=== PATIENT | male | born 1950 | race Caucasian/White ===

== ENCOUNTER 2018-01-21 08:43 | Day surgery (SDC) | payer OTHER ==
[~2018-01-21] VITALS: Ht 193 cm; Wt 105.3 kg
[~2018-01-21 08:43] MED LIST: CLON.1 PO; CYCL10 PO; GABA100; GLIM2 PO; HYDCHL12.5 PO; HYDMOR4 PO; LORA.5 PO; LOSA50 PO; METO25ER PO; METO50ER PO; NAPR550 PO; OLME20 PO; OXYACE7.5T PO; OXYC5 PO; PROC25S PR; PROM25 PO; PROM25S PR; TACR1 PO
== END 2018-01-21 10:24 | disposition home or self-care (01) ==
LOC: ORSCSDS 08:43
PROVIDERS: Internal Medicine Gastroenterology
PROC: 0DJD8ZZ Inspection of Lower Intestinal Tract, Via Natural or Artificial Opening Endoscopic (ICD-10-PCS; principal; 2018-01-21 10:00)
DX: Z86.010 Personal history of colon polyps (principal); K64.8 Other hemorrhoids; K57.30 Diverticulosis of large intestine without perforation or abscess without bleeding; I12.9 Hypertensive chronic kidney disease with stage 1 through stage 4 chronic kidney disease, or unspecified chronic kidney disease; N18.2 Chronic kidney disease, stage 2 (mild); E11.22 Type 2 diabetes mellitus with diabetic chronic kidney disease; F41.9 Anxiety disorder, unspecified; Z94.4 Liver transplant status; Z87.891 Personal history of nicotine dependence; Z79.899 Other long term (current) drug therapy
CPT/HCPCS: 82947; J7120

== ENCOUNTER → 2018-08-12 | Outpatient (CLI) | payer MEDICARE ==
[2018-08-13 10:15] LABS: U Amphetamine Screen Not Detected; U Barbituate Screen Not Detected; U Benzodiazapine Screen DETECTED; U Buprenorphine Screen Not Detected; U Cannabinoids Screen DETECTED; U Cocaine Screen Not Detected; U Methadone Screen Not Detected; U Methamphetamine Screen Not Detected; U Opiates Screen Not Detected; U Oxycodone Screen DETECTED; U Phencyclidine Screen Not Detected; U Propoxyphene Screen Not Detected
== END | disposition home or self-care (01) ==
LOC: LAB SHORT 09:01 → LAB 09:01
PROVIDERS: Internal Medicine Hematology & Oncology
DX: F11.20 Opioid dependence, uncomplicated (principal); Z79.891 Long term (current) use of opiate analgesic
CPT/HCPCS: G0480

== ENCOUNTER 2021-05-12 19:16 | Emergency (ER) | payer MEDICARE ==
[~2021-05-12] VITALS: Ht 190.5 cm; Wt 92.5 kg
[2021-05-12 19:52] LABS: BASOPHILS ABSOLUTE AUTO 0.04 K/mm3 (0.00-0.23); BASOPHILS PERCENT AUTO 1 % (0-2); EOSINOPHILS ABSOLUTE AUTO 0.14 K/mm3 (0.00-0.68); EOSINOPHILS PERCENT AUTO 2 % (0-6); Hematocrit 46.4 % (37.0-53.0); Hemoglobin 16.2 g/dL (13.5-17.5); IMMATURE GRAN ABSOLUTE AUTO 0.03 K/mm3 (0.00-0.10); IMMATURE GRAN PERCENT AUTO 1 % (0-1); LYMPHOCYTES ABSOLUTE AUTO 1.04 K/mm3 (0.84-5.20); LYMPHOCYTES PERCENT AUTO 16 % (21-46); MONOCYTES ABSOLUTE AUTO 0.71 K/mm3 (0.16-1.47); MONOCYTES PERCENT AUTO 11 % (4-13); Mean Corpuscular HGB 31.2 pg (26.0-34.0); Mean Corpuscular HGB Conc 34.9 g/dL (31.5-36.5); Mean Corpuscular Volume 89 fL (80-100); Mean Platelet Volume 11.1 fL (9.1-12.4); NEUTROPHILS ABSOLUTE AUTO 4.41 K/mm3 (1.96-9.15); NEUTROPHILS PERCENT AUTO 69 % (41-73); Platelet Count 109 K/mm3 (150-400); RDW Coefficient Variation 13.1 % (11.7-14.2); RDW Standard Deviation 42.6 fL (35.1-46.3); White Blood Cell Count 6.37 K/mm3 (4.00-11.30)
[2021-05-12 20:07] LABS: Troponin I <0.015 ng/mL (0.000-0.040)
[2021-05-12 20:18] LABS: Alanine Aminotransfer (ALT/SGP 113 U/L (12-78); Albumin, Blood 3.3 g/dL (3.4-5.0); Alk Phos 165 U/L (50-136); Anion Gap 6 mmol/L (6-16); Aspartate Aminotrans (AST/SGOT 143 U/L (12-37); Bilirubin, Total 1.6 mg/dL (0.1-1.0); Blood Urea Nitrogen 28 mg/dL (8-24); Bun/Creatinine Ratio 22.2 (12.0-20.0); CO2, Blood 23 mmol/L (21-32); Calcium, Blood 9.3 mg/dL (8.5-10.1); Chloride, Blood 108 mmol/L (98-108); Creatinine, Blood 1.26 mg/dL (0.60-1.20); Globulin, Blood 3.2 g/dL (2.2-4.0); Glomerular Filtration Rate 56 (60-); Glucose, Blood 152 mg/dL (70-99); Potassium, Blood 3.9 mmol/L (3.5-5.5); Sodium, Blood 137 mmol/L (136-145); Total Protein, Blood 6.5 g/dL (6.4-8.2)
[2021-05-12 21:45] LABS: SARS-Cov-2 (COVID-19) PCR, MMC NEGATIVE (NEGATIVE)
== END 2021-05-12 22:15 | disposition home or self-care (01) ==
LOC: ER 19:16
PROVIDERS: Emergency Medicine
DX: R55 Syncope and collapse (principal); R79.89 Other specified abnormal findings of blood chemistry; Z20.822 Contact with and (suspected) exposure to COVID-19; Z87.891 Personal history of nicotine dependence; Z79.899 Other long term (current) drug therapy
CPT/HCPCS: 70450; 80053; 84484; 85025; 93005; 93010; 99285-25; J7120; U0004

== ENCOUNTER → 2022-02-09 | Outpatient (CLI) | payer MEDICARE, OTHER ==
[2022-02-09 15:41] LABS: U Amphetamine Screen Not Detected; U Barbituate Screen Not Detected; U Benzodiazapine Screen DETECTED; U Buprenorphine Screen Not Detected; U Cannabinoids Screen DETECTED; U Cocaine Screen Not Detected; U Methadone Screen Not Detected; U Methamphetamine Screen Not Detected; U Opiates Screen Not Detected; U Oxycodone Screen Not Detected; U Phencyclidine Screen Not Detected; U Propoxyphene Screen Not Detected
[2022-02-14 14:10] LABS: CARBOXY-THC 70 (.)
== END | disposition home or self-care (01) ==
LOC: LAB SHORT 13:49 → LAB 13:49
PROVIDERS: Internal Medicine Hematology & Oncology
DX: Z51.81 Encounter for therapeutic drug level monitoring (principal); Z79.899 Other long term (current) drug therapy
CPT/HCPCS: G0480

== ENCOUNTER 2022-04-12 18:26 | Inpatient (IN) | payer MEDICARE, OTHER ==
[~2022-04-12] VITALS: Ht 193 cm; Wt 81.6 kg
[2022-04-12 19:32] LABS: BASOPHILS ABSOLUTE AUTO 0.04 K/mm3 (0.00-0.23); BASOPHILS PERCENT AUTO 1 % (0-2); EOSINOPHILS ABSOLUTE AUTO 0.08 K/mm3 (0.00-0.68); EOSINOPHILS PERCENT AUTO 1 % (0-6); Hematocrit 50.6 % (37.0-53.0); IMMATURE GRAN ABSOLUTE AUTO 0.01 K/mm3 (0.00-0.10); IMMATURE GRAN PERCENT AUTO 0 % (0-1); LYMPHOCYTES ABSOLUTE AUTO 0.89 K/mm3 (0.84-5.20); LYMPHOCYTES PERCENT AUTO 16 % (21-46); MONOCYTES ABSOLUTE AUTO 0.58 K/mm3 (0.16-1.47); MONOCYTES PERCENT AUTO 10 % (4-13); Mean Corpuscular HGB 31.1 pg (26.0-34.0); Mean Corpuscular HGB Conc 35.6 g/dL (31.5-36.5); Mean Corpuscular Volume 88 fL (80-100); Mean Platelet Volume 11.2 fL (9.1-12.4); NEUTROPHILS ABSOLUTE AUTO 4.11 K/mm3 (1.96-9.15); NEUTROPHILS PERCENT AUTO 72 % (41-73); Platelet Count 147 K/mm3 (150-400); RDW Coefficient Variation 12.9 % (11.7-14.2); RDW Standard Deviation 41.4 fL (35.1-46.3); Red Blood Cell Count 5.78 M/mm3 (4.30-5.90); White Blood Cell Count 5.71 K/mm3 (4.00-11.30)
[2022-04-12 19:48] LABS: International Normalized Ratio 0.99; Prothrombin Time Results 10.4 Sec (9.7-11.5)
[2022-04-12 19:53] LABS: Influenza A, PCR NEGATIVE (NEGATIVE); Influenza B, PCR NEGATIVE (NEGATIVE); Resp Syncytial Virus, PCR NEGATIVE (NEGATIVE); SARS-Cov-2 (COVID-19) PCR, MMC NEGATIVE (NEGATIVE)
[2022-04-12 19:54] LABS: Albumin, Blood 3.4 g/dL (3.4-5.0); Bilirubin, Total 1.2 mg/dL (0.1-1.0); Calcium, Blood 9.8 mg/dL (8.5-10.1); Creatinine, Blood 1.16 mg/dL (0.60-1.20); Globulin, Blood 3.5 g/dL (2.2-4.0); Potassium, Blood 3.6 mmol/L (3.5-5.5); Total Protein, Blood 6.9 g/dL (6.4-8.2)
[2022-04-12 20:46] LABS: Source, Urine Clean Catch
[2022-04-12 20:49] LABS: Bilirubin, Urine Neg (Neg); Blood, Urine Neg (Neg); Glucose Qualitative, Urine 4+ (Neg); Ketones, Urine Neg (Neg); Leukocyte Esterase, Urine Neg (Neg); Nitrite, Urine Neg (Neg); Protein, Urine 1+ (Neg); Urobilinogen, Urine NORM (Normal)
[2022-04-12 21:00] LABS: Appearance, Urine Clear (Clear); Color, Urine Yellow (P-Yellow)
[2022-04-12] MEDS ORDERED: METFORMIN HCL500 M3 PO (21:26)
[2022-04-12] MEDS ORDERED: TEMA30 PO (21:26)
--- NOTE | 2022-04-13 00:06 | NUR ---
0006 HRS: PT ARRIVED TO THE UNIT VIA BED. AMBULATES INDEPENDENTLY. LUNGS CLEAR AND PT SHOWS NO SIGNS OF DISTRESS AT THIS TIME. DENIES PAIN AT THIS TIME. REPORTS HAVING RECEIVED PAIN MEDICATION IN THE ER. PT ORIENTED TO THE ROOM AND HE IS RESTING WITH CALL LIGHT IN REACH.
--- NOTE | 2022-04-13 01:30 | NUR ---
[facility] PREVENTING ADMISSION ASSESSMENT FROM BEING COMPLETED. ATTEMPTED TO REOPEN AND COMPLETE ASSESSMENT. CLOSED AND WILL NOT REOPEN. SHIFT ASSESSMENT COMPLETED IN PLACE.
[2022-04-13 05:09] LABS: BASOPHILS ABSOLUTE AUTO 0.04 K/mm3 (0.00-0.23); BASOPHILS PERCENT AUTO 1 % (0-2); EOSINOPHILS ABSOLUTE AUTO 0.16 K/mm3 (0.00-0.68); EOSINOPHILS PERCENT AUTO 2 % (0-6); Hematocrit 44.1 % (37.0-53.0); Hemoglobin 15.7 g/dL (13.5-17.5); IMMATURE GRAN ABSOLUTE AUTO 0.01 K/mm3 (0.00-0.10); IMMATURE GRAN PERCENT AUTO 0 % (0-1); LYMPHOCYTES ABSOLUTE AUTO 1.46 K/mm3 (0.84-5.20); LYMPHOCYTES PERCENT AUTO 22 % (21-46); MONOCYTES ABSOLUTE AUTO 0.68 K/mm3 (0.16-1.47); MONOCYTES PERCENT AUTO 10 % (4-13); Mean Corpuscular HGB 31.5 pg (26.0-34.0); Mean Corpuscular HGB Conc 35.6 g/dL (31.5-36.5); Mean Corpuscular Volume 88 fL (80-100); Mean Platelet Volume 11.5 fL (9.1-12.4); NEUTROPHILS PERCENT AUTO 64 % (41-73); Platelet Count 125 K/mm3 (150-400); RDW Coefficient Variation 12.7 % (11.7-14.2); RDW Standard Deviation 41.1 fL (35.1-46.3); Red Blood Cell Count 4.99 M/mm3 (4.30-5.90); White Blood Cell Count 6.55 K/mm3 (4.00-11.30)
[2022-04-13 05:38] LABS: Albumin, Blood 2.9 g/dL (3.4-5.0); Bilirubin, Total 0.6 mg/dL (0.1-1.0); Bun/Creatinine Ratio 26.1 (12.0-20.0); Calcium, Blood 8.9 mg/dL (8.5-10.1); Creatinine, Blood 1.11 mg/dL (0.60-1.20); Globulin, Blood 2.8 g/dL (2.2-4.0); Potassium, Blood 3.7 mmol/L (3.5-5.5); Total Protein, Blood 5.7 g/dL (6.4-8.2)
--- NOTE | 2022-04-13 05:42 | NUR ---
SHIFT SUMMARY: PT ARRIVED TO THE UNIT AT APPROXIMATELY 0006 FOR PERIANAL ABSCESS. PT IS A&OX4. ON RA. INDEPENDENT IN ROOM. SCDs IN PLACE. C/O MINIMAL PAIN DURING THE SHIFT. PT NPO SINCE MIDNIGHT. SURGICAL INFECTION PREVENTION KIT COMPLETED. CONSULT COMPLETED. PLANS FOR SURGERY TODAY. PT RESTING COMFORTABLY AT THIS TIME WITH CALL LIGHT IN REACH.
--- NOTE | 2022-04-13 13:22 | NUR ---
PT HAS 20 G IV IN R FA THAT RUNS WELL TO GRAVITY, SHOWS NO SIGNS OF INFILTRATION. NO COOLNESS, REDNESS, SORE TO TOUCH OR LEAKING.
--- NOTE | 2022-04-13 14:01 | NUR ---
04/13/22 1401 Jennifer Mattson PT ON SCHEDULED ZOSYN, CONFIRMED WITH DR ZARAGOZA.
--- NOTE | 2022-04-13 14:21 | NUR ---
PT ARRIVED TO PACU WITH OPA IN AND TOOTH FRAGMENT ON LIP. OPA REMOVED AND 2 OTHER FRAGMENTS FOUND IN MOUTH. FRAGMENTS PUT IN A CUP AND LABELED FOR PT.
--- NOTE | 2022-04-13 15:01 | NUR ---
PT MORE AWAKE. PT NOW AWARE OF THE TOOTH THAT BROKE. PT VERY UPSET AND WANTED TO KNOW HOW IT HAPPENED AND WANTS TO KNOW WHO TO TALK TO SO [facility] CAN PAY FOR IT TO BE FIXED.
--- NOTE | 2022-04-13 15:05 | NUR ---
DR. MCCARTNEY HERE TALKING WITH PATIENT ABOUT HOW HIS TOOTH POSSIBLY GOT BROKEN AND THAT IT WOULD LIKE BE COVERED UNDER THE OR POLICY TO BE FIXED. PT HAS A GAP OF 3 TEETH ON THE LEFT UPPER SIDE OF MOUTH WHICH HE SAID HE JUST HAD A PARTIAL MADE FOR. STATES THAT THIS IS IN HIS ROOM ON THE SURGICAL FLOOR.
--- NOTE | 2022-04-13 15:20 | NUR ---
KRISTY JACKSON HERE TO TALK WITH PATIENT WITH SPEAK WITH KRISTIE JACKSON AND MATT MARTIN RN RE: PT'S BROKEN TOOTH.
--- NOTE | 2022-04-14 04:50 | NUR ---
SHIFT SUMMARY: PT HAD MILD PAIN T/O THE NIGHT THAT WAS WELL MANAGED PER EMAR ORDERS. TOLERATING PO FLUIDS. DENIES NAUSEA. PT REPORTED THAT BROUGHT HIM A HAMBURGER AFTER SURGERY AND REPORTED SLIGHT ABD DISCOMFORT, HAS SINCE RESOLVED. PT IS EATING, DRINKING, AND VOIDING. JACKI DRAIN IS DRAINING A SMALL AMOUNT ONTO GAUZE.BRIEF WITH GAUZE IN PLACE. PT INDEPENDENT IN ROOM. REPORTS PASSING GAS AND HAVING BM. A&OX4.
[2022-04-14] MEDS ORDERED: LACT PO (13:19)
[2022-04-14] MEDS ORDERED: AMOCLA875 PO (13:19)
== END 2022-04-14 13:35 | disposition home or self-care (01) | DRG 603 ==
LOC: ER 18:26 → SURS 22:52
PROVIDERS: Physician Assistant; Surgery; ADMIT Internal Medicine
PROC: 0W9M0ZZ Drainage of Male Perineum, Open Approach (ICD-10-PCS; principal; 2022-04-13 12:00)
DX: L03.315 Cellulitis of perineum (principal); E87.2 Acidosis; Z94.4 Liver transplant status; L02.215 Cutaneous abscess of perineum; I10 Essential (primary) hypertension; K74.60 Unspecified cirrhosis of liver; B18.2 Chronic viral hepatitis C; Z96.612 Presence of left artificial shoulder joint; N49.2 Inflammatory disorders of scrotum; E11.40 Type 2 diabetes mellitus with diabetic neuropathy, unspecified; E11.65 Type 2 diabetes mellitus with hyperglycemia; Z88.8 Allergy status to other drugs, medicaments and biological substances; Z79.899 Other long term (current) drug therapy; Z98.890 Other specified postprocedural states
CPT/HCPCS: 0241U; 36415; 80053; 82947; 83605; 85025; 85610; 85730; 87040; 87086; 93005; 93010; 96365; 96366; 96367; 96375; 99284-25; A9270; J1100; J1815; J2370; J2405; J2543; J2704; J2795; J3010; J3370; J7030; J7050; J7120

== ENCOUNTER 2022-09-29 23:56 | Inpatient (IN) | payer MEDICARE, OTHER ==
[~2022-09-29] VITALS: Ht 188 cm; Wt 92.0 kg
[~2022-09-29 23:56] MED LIST changes: +AMOCLA875 PO; +LACT PO; +METFORMIN HCL500 M3 PO; +TEMA30 PO
[2022-09-30 02:13] LABS: BASOPHILS ABSOLUTE AUTO 0.03 K/mm3 (0.00-0.23); BASOPHILS PERCENT AUTO 1 % (0-2); EOSINOPHILS ABSOLUTE AUTO 0.22 K/mm3 (0.00-0.68); EOSINOPHILS PERCENT AUTO 5 % (0-6); Hematocrit 48.8 % (37.0-53.0); Hemoglobin 17.3 g/dL (13.5-17.5); IMMATURE GRAN ABSOLUTE AUTO 0.02 K/mm3 (0.00-0.10); IMMATURE GRAN PERCENT AUTO 0 % (0-1); LYMPHOCYTES ABSOLUTE AUTO 1.26 K/mm3 (0.84-5.20); LYMPHOCYTES PERCENT AUTO 26 % (21-46); MONOCYTES ABSOLUTE AUTO 0.58 K/mm3 (0.16-1.47); MONOCYTES PERCENT AUTO 12 % (4-13); Mean Corpuscular HGB 30.5 pg (26.0-34.0); Mean Corpuscular HGB Conc 35.5 g/dL (31.5-36.5); Mean Corpuscular Volume 86 fL (80-100); Mean Platelet Volume 11.4 fL (9.1-12.4); NEUTROPHILS ABSOLUTE AUTO 2.73 K/mm3 (1.96-9.15); NEUTROPHILS PERCENT AUTO 57 % (41-73); Platelet Count 125 K/mm3 (150-400); RDW Coefficient Variation 13.2 % (11.7-14.2); RDW Standard Deviation 41.1 fL (35.1-46.3); Red Blood Cell Count 5.67 M/mm3 (4.30-5.90); White Blood Cell Count 4.84 K/mm3 (4.00-11.30)
[2022-09-30 02:23] LABS: Albumin, Blood 3.7 g/dL (3.4-5.0); Albumin/Globulin Ratio 1.2 (0.8-1.8); Bilirubin, Total 0.8 mg/dL (0.1-1.0); Bun/Creatinine Ratio 35.6 (12.0-20.0); Calcium, Blood 9.8 mg/dL (8.5-10.1); Creatinine, Blood 1.04 mg/dL (0.60-1.20); Potassium, Blood 3.5 mmol/L (3.5-5.5); Total Protein, Blood 6.7 g/dL (6.4-8.2)
[2022-09-30 02:37] LABS: Source, Urine Straight Cath
[2022-09-30 02:39] LABS: Bilirubin, Urine Neg (Neg); Blood, Urine Neg (Neg); Glucose Qualitative, Urine 4+ (Neg); Ketones, Urine Neg (Neg); Leukocyte Esterase, Urine Neg (Neg); Nitrite, Urine Neg (Neg); Protein, Urine 1+ (Neg); Specific Gravity, Urine 1.015 (1.003-1.022); Urobilinogen, Urine NORM (Normal)
[2022-09-30 02:47] LABS: Appearance, Urine Clear (Clear); Color, Urine Yellow (P-Yellow)
--- NOTE | 2022-09-30 16:11 | NUR ---
LATE ENTRY/ER ADMIT 1415: RECEIVED REPORT FROM MATTRESS MAKER. 1430: RECEIVED PT FROM ER VIA W/C. PT PLACED HIMSELF IN BED, MADE COMFORTABLE, ORIENTED TO ROOM & UNIT ROUTINE. PT A&O X 3-4. VSS. IS APPROPRIATELY ANSWERING SIMPLE QUESTIONS WITH YES OR NO AND IS BEGINNING TO FORM SHORT SIMPLE SENTENCES. IS HAVING DIFFICULTY RECALLING SHORT TERM MEMORY & BECOMES ANXIOUS. PT'S & SON ARE AT BEDSIDE. IS COOPERATIVE. ADMIT COMPLETED.
--- NOTE | 2022-09-30 18:37 | NUR ---
SHIFT SUMMARY PT IS A&O X 3-4. SHORT TERM MEMORY SEEMS EFFECTED. IS BEGINNING TO SPEAK IN FULL SENTENCES. IS STRUGGLING WITH UNDERSTANDING "WHAT HAPPENED & WHY AM I HERE?". PT EDUCATED AND RE-ORIENTED. IS ABLE TO IDENTIFY THAT HE'S IN THE HOSPITAL, WHO HIS FAMILY IS AND THAT HOSPITAL STAFF IS ENTERING HIS ROOM TO CARE FOR HIM. CONTINUES TO STATE HE WANTS TO GO HOME. PT & OT EVALS ORDERED & PENDING.
--- NOTE | 2022-09-30 18:45 | NUR ---
RECEIVED BEDSIDE REPORT FROM DAYSHIFT RN. WILL CONTINUE TO PROVIDE CARE T/O SHIFT. CALL LT IN REACH. NO NEEDS AT THIS TIME.
[2022-09-30] MEDS ORDERED: CATAPRES0.1 MG PO (18:58)
[2022-09-30] MEDS ORDERED: FARXIGA10 MG PO (19:00)
[2022-09-30] MEDS ORDERED: ESZO2 PO (19:01)
[2022-09-30] MEDS ORDERED: GABA100 PO (19:02)
[2022-09-30] MEDS ORDERED: Amaryl2 MG PO (19:03)
[2022-09-30] MEDS ORDERED: HYDCHL50 PO (19:04)
[2022-09-30] MEDS ORDERED: LOSARTAN POTAS100 M1 PO (19:05)
[2022-09-30] MEDS ORDERED: Glucophage 500 mg PO (19:07)
[2022-09-30] MEDS ORDERED: OXYACE7.5T PO (19:08)
--- NOTE | 2022-09-30 20:24 | NUR ---
FAMILY AT BEDSIDE. NO COMPLAINTS BY PT. RESP E/U ON RA. PT HAS DIFFICULTY SAYING WORDS. NO SWALLOWING DIFFICULTY. PASS SPEECH EVAL IN ER BEFORE COMING TO FLOOR PER DAYSHIFT RN. CALL LT IN REACH.
--- NOTE | 2022-09-30 21:55 | NUR ---
PT IN BED. AT BEDSIDE. PT DENIES NEEDS AT THIS TIME. STATES PT'S APPETITE IS GOOD, ATE A WHOLE SANDWICH AT THE END OF DAYSHIFT. CBG 159 AT BEDTIME. CALL LT IN REACH.
--- NOTE | 2022-09-30 22:38 | NUR ---
STATES PT USUALLY TAKES A SLEEP AID AT NIGHT BECAUSE HE HAS A HARD TIME RESTING AT BEDTIME. CALLED THE HOSPITALIST AND RECEIVED THE HOME DOSE OF TEMAZEPAM PT TAKES AT HOME.
--- NOTE | 2022-09-30 23:02 | NUR ---
MEDICATED PT WITH HOME DOSE OF TEMAZEPAM. PT STATES HE SOMETIMES IS JUST WIDE AWAKE. NO OTHER NEEDS AT THIS TIME. CALL LT IN REACH.
--- NOTE | 2022-10-01 00:05 | NUR ---
PT RESTING QUIETLY. AT BEDSIDE. CALL LT IN REACH.
--- NOTE | 2022-10-01 02:09 | NUR ---
PT RESTING QUIETLY. CALL LT IN REACH.
--- NOTE | 2022-10-01 04:19 | NUR ---
PT CONTINUES TO REST QUIETLY. AT BEDSIDE. CALL LT IN REACH.
--- NOTE | 2022-10-01 04:24 | NUR ---
SHIFT SUMMARY: PT ABLE TO COMMUNICATE NEEDS BETTER. NO SWALLOWING DEFICITS. AMBULATES WITH STEADY GAIT. ON RA. SINUS RHYTHM AT 63 ON TELE WITH A FIRST DEGREE BLOCK. CBG 159, NO COVERAGE INDICATED. NO COMPLAINTS. PT RESTED WELL AFTER RECEIVING HOME DOSE OF TEMAZEPAM. SUPPORTED PT DURING THE NIGHT. WILL CONTINUE TO PROVIDE CARE UNTIL SHIFT REPORT TO ONCOMING NURSE.
[2022-10-01 04:53] LABS: BASOPHILS ABSOLUTE AUTO 0.05 K/mm3 (0.00-0.23); BASOPHILS PERCENT AUTO 1 % (0-2); EOSINOPHILS PERCENT AUTO 4 % (0-6); Hematocrit 46.7 % (37.0-53.0); Hemoglobin 16.7 g/dL (13.5-17.5); IMMATURE GRAN ABSOLUTE AUTO 0.01 K/mm3 (0.00-0.10); IMMATURE GRAN PERCENT AUTO 0 % (0-1); LYMPHOCYTES ABSOLUTE AUTO 1.62 K/mm3 (0.84-5.20); LYMPHOCYTES PERCENT AUTO 34 % (21-46); MONOCYTES ABSOLUTE AUTO 0.58 K/mm3 (0.16-1.47); MONOCYTES PERCENT AUTO 12 % (4-13); Mean Corpuscular HGB 31.2 pg (26.0-34.0); Mean Corpuscular HGB Conc 35.8 g/dL (31.5-36.5); Mean Corpuscular Volume 87 fL (80-100); NEUTROPHILS ABSOLUTE AUTO 2.26 K/mm3 (1.96-9.15); NEUTROPHILS PERCENT AUTO 48 % (41-73); Platelet Count 112 K/mm3 (150-400); RDW Coefficient Variation 13.2 % (11.7-14.2); RDW Standard Deviation 42.4 fL (35.1-46.3); Red Blood Cell Count 5.36 M/mm3 (4.30-5.90); White Blood Cell Count 4.72 K/mm3 (4.00-11.30)
[2022-10-01 05:12] LABS: Anion Gap 2 mmol/L (6-16); Blood Urea Nitrogen 33 mg/dL (8-24); CO2, Blood 30 mmol/L (21-32); Calcium, Blood 9.6 mg/dL (8.5-10.1); Chloride, Blood 104 mmol/L (98-108); Cholesterol 161 mg/dL (50-200); Glomerular Filtration Rate 71 (60-); Glucose, Blood 235 mg/dL (70-99); HDL Cholesterol 53 mg/dL (>39); LDL/HDL RATIO 1.6; Low Density Lipoprotein Chol 82 mg/dL (0-110); Potassium, Blood 3.5 mmol/L (3.5-5.5); Sodium, Blood 136 mmol/L (136-145); Triglycerides 129 mg/dL (30-160); Very Low Density Lipoprot Chol 25 mg/dL (6-32)
--- NOTE | 2022-10-01 06:21 | NUR ---
PT CONTINUES TO REST QUIETLY. AT BEDSIDE. CALL LT IN REACH.
--- NOTE | 2022-10-01 10:24 | NUR ---
PT TO SHOWER PT'S CALLED RN IN TO ROOM BEFORE PT TOOK A SHOWER TO LOOK AT PT'S R GREAT TOE. R GREAT TOE NAIL WITH BLACK HARDENED SUBSTANCE WITH FOUL ODOR , POSSIBLY OLD DRIED BLOOD, RIMMING EDGE OF TOENAIL. TOE IS PINK IN COLOR, PT DENIES PAIN. PT HAS LARGE WELL HEALED R ABD SCAR FROM PREVIOUS LIVER TRANSPLANT SURG AND OLDER WELL HEALED LOWER BACK SCARS FROM BACK SURGERY.
[2022-10-01] MEDS ORDERED: CLOP75 PO (11:27)
[2022-10-01] MEDS ORDERED: ASPI81CH PO (11:27)
--- NOTE | 2022-10-01 15:51 | NUR ---
DC HOME ECHO DONE. PHYS THERAPY EVAL DONE. PODIATRY CONSULT DONE. MD WROTE DC HOME ORDERS. WRITTEN & VERBAL DC INSTRUCTIONS GIVEN TO PT WITH PRESENT, BOTH VERBALIZED GOOD UNDERSTANDING. ALL CONCERNS & QUESTIONS ANSWERED. PIV DC'D WITH CATH TIP INATCT, NO REDNESS OR SWELLING NOTED. TELE DC'D, REGULATORY ASSOCIATE NOTIFIED & AWARE. NEW SCRIPTS FAXED TO PT'S PREFERRED PHARM. PTTO PRIVATE VEHICLE VIA W/C, ACCOMPANIED BY WITH ALL PERSONAL BELONGINGS.
== END 2022-10-01 15:40 | disposition home or self-care (01) | DRG 65 ==
LOC: ER 23:56 → MEDS 09-30 08:16 → ERHOLD 09-30 08:16 → MEDS 09-30 14:33
PROVIDERS: Family Medicine; Student in an Organized Health Care Education/Training Program; ADMIT Hospitalist
DX: I63.512 Cerebral infarction due to unspecified occlusion or stenosis of left middle cerebral artery (principal); Z94.4 Liver transplant status; Z28.21 Immunization not carried out because of patient refusal; R29.706 NIHSS score 6; K74.60 Unspecified cirrhosis of liver; B19.20 Unspecified viral hepatitis C without hepatic coma; I10 Essential (primary) hypertension; E11.40 Type 2 diabetes mellitus with diabetic neuropathy, unspecified; F11.90 Opioid use, unspecified, uncomplicated; R47.81 Slurred speech; Z96.652 Presence of left artificial knee joint; Z72.89 Other problems related to lifestyle; Z72.0 Tobacco use; Z98.890 Other specified postprocedural states; Z88.8 Allergy status to other drugs, medicaments and biological substances; Z79.84 Long term (current) use of oral hypoglycemic drugs; Z79.899 Other long term (current) drug therapy
CPT/HCPCS: 36415; 70450; 70496; 70498; 71045; 80048; 80053; 80061; 82140; 82947; 83036; 85025; 92610; 93005; 93010; 93306; 97116; 97162; 99285-25; A9270; J1650; Q9967

== ENCOUNTER → 2024-01-22 | Outpatient (CLI) | payer MEDICARE, OTHER ==
[~2024-01-22] MED LIST changes: +ASPI81CH PO; +Amaryl2 MG PO; +CATAPRES0.1 MG PO; +CLOP75 PO; +ESZO2 PO; +FARXIGA10 MG PO; +GABA100 PO; +Glucophage 500 mg PO; +HYDCHL50 PO; +LOSARTAN POTAS100 M1 PO
[2024-01-23 12:27] LABS: U Amphetamine Screen Not Detected; U Barbituate Screen Not Detected; U Benzodiazapine Screen Not Detected; U Buprenorphine Screen Not Detected; U Cannabinoids Screen Not Detected; U Cocaine Screen Not Detected; U Methadone Screen Not Detected; U Methamphetamine Screen Not Detected; U Opiates Screen Not Detected; U Oxycodone Screen Not Detected; U Phencyclidine Screen Not Detected
== END | disposition home or self-care (01) ==
LOC: LAB SHORT 14:52 → LAB 14:52
PROVIDERS: Internal Medicine Hematology & Oncology
DX: Z51.81 Encounter for therapeutic drug level monitoring (principal); Z79.899 Other long term (current) drug therapy

== ENCOUNTER → 2024-06-18 | Outpatient (CLI) | payer MEDICARE, OTHER ==
[2024-06-19 14:33] LABS: U Amphetamine Screen Not Detected; U Barbituate Screen Not Detected; U Benzodiazapine Screen Not Detected; U Buprenorphine Screen Not Detected; U Cannabinoids Screen Not Detected; U Cocaine Screen Not Detected; U Methadone Screen Not Detected; U Methamphetamine Screen Not Detected; U Opiates Screen Not Detected; U Oxycodone Screen Not Detected; U Phencyclidine Screen Not Detected
== END | disposition home or self-care (01) ==
LOC: LAB 15:13 → LAB SHORT 15:13
PROVIDERS: Internal Medicine Hematology & Oncology
DX: Z51.81 Encounter for therapeutic drug level monitoring (principal); Z79.899 Other long term (current) drug therapy

== ENCOUNTER → 2024-11-05 | Outpatient (CLI) | payer MEDICARE ==
[2024-11-05 19:14] LABS: U Amphetamine Screen Not Detected; U Barbituate Screen Not Detected; U Benzodiazapine Screen Not Detected; U Buprenorphine Screen Not Detected; U Cannabinoids Screen Not Detected; U Cocaine Screen Not Detected; U Methadone Screen Not Detected; U Methamphetamine Screen Not Detected; U Opiates Screen Not Detected; U Oxycodone Screen Not Detected; U Phencyclidine Screen Not Detected
== END ==
LOC: LAB SHORT 11:15 → LAB 11:15
PROVIDERS: Internal Medicine Hematology & Oncology
DX: M54.16 Radiculopathy, lumbar region (principal); Z79.899 Other long term (current) drug therapy

== ENCOUNTER → 2025-03-30 | Outpatient (CLI) | payer MEDICARE, OTHER ==
[2025-03-30 15:05] LABS: Microalbumin, Urine Quant. 104.0 mg/L (0.000-20.000); Protein, Urine Quantitative 27.6 mg/dL (0.0-11.9)
== END | disposition home or self-care (01) ==
LOC: LAB 06:00 → LAB SHORT 06:00 → LAB FUT 03-26 15:10
PROVIDERS: Internal Medicine Nephrology
DX: N18.2 Chronic kidney disease, stage 2 (mild) (principal); D63.1 Anemia in chronic kidney disease; N25.81 Secondary hyperparathyroidism of renal origin; E55.9 Vitamin D deficiency, unspecified; E78.00 Pure hypercholesterolemia, unspecified; N40.1 Benign prostatic hyperplasia with lower urinary tract symptoms; D51.8 Other vitamin B12 deficiency anemias; D52.8 Other folate deficiency anemias; D50.9 Iron deficiency anemia, unspecified; R76.9 Abnormal immunological finding in serum, unspecified; R94.5 Abnormal results of liver function studies; R94.6 Abnormal results of thyroid function studies
CPT/HCPCS: 81050; 82043; 82570; 84156

== ENCOUNTER → 2025-04-01 | Outpatient (CLI) | payer MEDICARE, OTHER ==
[~2025-04-01] MED LIST changes: +Amitriptyline H10 MG PO; +CARV3.125 PO; +ENTRESTO 24 MG1 EAC2 PO; +MECL25 PO; +METO5A PO; +ONDA4 PO; +Percocet 10-321 EACH PO; +QUET25 PO; +TAMS.4ER PO
[2025-04-01 20:29] LABS: Alanine Aminotransfer (ALT/SGP 34.0 U/L (12-78); Albumin, Blood 3.7 g/dL (3.4-5.0); Albumin/Globulin Ratio 1.3 (0.8-1.8); Anion Gap 15.0 mmol/L (3-11); Aspartate Aminotrans (AST/SGOT 14.0 U/L (12-37); Bilirubin, Direct 0.4 mg/dL (0.0-0.3); Bilirubin, Indirect 1.1 mg/dL (0.1-0.7); Bilirubin, Total 1.5 mg/dL (0.1-1.0); Blood Urea Nitrogen 28.0 mg/dL (8-24); CO2, Blood 25.0 mmol/L (21-32); Calcium, Blood 9.9 mg/dL (8.5-10.1); Chloride, Blood 95.0 mmol/L (98-108); Creatinine, Blood 0.92 mg/dL (0.60-1.20); Globulin, Blood 2.8 g/dL (2.2-4.0); Glucose, Blood 240.0 mg/dL (70-99); Phosphorus, Blood 2.6 mg/dL (2.5-4.9); Potassium, Blood 4.0 mmol/L (3.5-5.5); Sodium, Blood 131.0 mmol/L (136-145); Total Protein, Blood 6.5 g/dL (6.4-8.2)
== END | disposition home or self-care (01) ==
LOC: LAB 14:53 → LAB SHORT 14:53
PROVIDERS: Internal Medicine Hematology & Oncology
DX: Z51.81 Encounter for therapeutic drug level monitoring (principal); Z79.899 Other long term (current) drug therapy
CPT/HCPCS: 80053; 80076; 84100

== ENCOUNTER 2025-04-02 11:07 | Inpatient (IN) | payer MEDICARE ==
[~2025-04-02] VITALS: Ht 193 cm; Wt 78.0 kg
[~2025-04-02 11:07] MED LIST changes: -Amitriptyline H10 MG PO; -CARV3.125 PO; -ENTRESTO 24 MG1 EAC2 PO; -MECL25 PO; -METO5A PO; -ONDA4 PO; -Percocet 10-321 EACH PO; -QUET25 PO; -TAMS.4ER PO
[2025-04-02] MEDS ORDERED: NS 1,000 ML IV SCH ×3 (11:55→20:00)
[2025-04-02] MEDS ORDERED: Ondansetron HCl 2 MG / ML 2ML Vial IV ONE ×2 (11:55→18:25)
[2025-04-02 12:26] LABS: BASOPHILS ABSOLUTE AUTO 0.03 K/mm3 (0.00-0.23); BASOPHILS PERCENT AUTO 0 % (0-2); EOSINOPHILS ABSOLUTE AUTO 0.01 K/mm3 (0.00-0.68); EOSINOPHILS PERCENT AUTO 0 % (0-6); Hematocrit 54.1 % (37.0-53.0); Hemoglobin 20.3 g/dL (13.5-17.5); IMMATURE GRAN ABSOLUTE AUTO 0.07 K/mm3 (0.00-0.10); IMMATURE GRAN PERCENT AUTO 1 % (0-1); LYMPHOCYTES ABSOLUTE AUTO 1.46 K/mm3 (0.84-5.20); LYMPHOCYTES PERCENT AUTO 12 % (21-46); MONOCYTES ABSOLUTE AUTO 1.19 K/mm3 (0.16-1.47); MONOCYTES PERCENT AUTO 9 % (4-13); Mean Corpuscular HGB Conc 37.5 g/dL (31.5-36.5); Mean Corpuscular Volume 81 fL (80-100); NEUTROPHILS ABSOLUTE AUTO 9.90 K/mm3 (1.96-9.15); NEUTROPHILS PERCENT AUTO 78 % (41-73); NRBC ABSOLUTE 0.00 K/mm3 (0.00-0.02); NRBC Auto 0.0 /100 WBC (0.0-0.2); Platelet Count 316 K/mm3 (150-400); RDW Coefficient Variation 12.4 % (11.7-14.2); RDW Standard Deviation 36.1 fL (35.1-46.3)
[2025-04-02 13:00] LABS: Alanine Aminotransfer (ALT/SGP 32.0 U/L (12-78); Albumin, Blood 3.7 g/dL (3.4-5.0); Albumin/Globulin Ratio 1.0 (0.8-1.8); Anion Gap 14.0 mmol/L (3-11); Aspartate Aminotrans (AST/SGOT 23.0 U/L (12-37); Bilirubin, Total 2.2 mg/dL (0.1-1.0); Blood Urea Nitrogen 24.0 mg/dL (8-24); CO2, Blood 25.0 mmol/L (21-32); Calcium, Blood 10.4 mg/dL (8.5-10.1); Chloride, Blood 91.0 mmol/L (98-108); Creatinine, Blood 0.78 mg/dL (0.60-1.20); Globulin, Blood 3.6 g/dL (2.2-4.0); Glucose, Blood 292.0 mg/dL (70-99); Potassium, Blood 3.3 mmol/L (3.5-5.5); Sodium, Blood 127.0 mmol/L (136-145); Total Protein, Blood 7.3 g/dL (6.4-8.2)
[2025-04-02] MEDS ORDERED: FentaNYL Citrate 50 MCG/ML 2 ML Injection IV PRN ×2 (15:05→19:25)
[2025-04-02 15:06] LABS: Source, Urine Clean Catch
[2025-04-02 15:28] LABS: Bilirubin, Urine Neg (Neg); Color, Urine Yellow (P-Yellow); Glucose Qualitative, Urine 4+ (Neg); Ketones, Urine 4+ (Neg); Leukocyte Esterase, Urine Neg (Neg); Protein, Urine 4+ (Neg); Specific Gravity, Urine 1.020 (1.003-1.022); Urobilinogen, Urine NORM (Normal)
[2025-04-02 15:49] LABS: Red Blood Cells, Urine 0-2 /hpf (0-2); White Blood Cells, Urine 0-2 /hpf (0-5)
[2025-04-02] MEDS ORDERED: Magnesium Sulf 2 GM/Water 50ML 50 ML IV ONE (17:15)
[2025-04-02 17:55] LABS: Influenza A, PCR NEGATIVE (NEGATIVE); Influenza B, PCR NEGATIVE (NEGATIVE); Resp Syncytial Virus, PCR NEGATIVE (NEGATIVE); SARS-Cov-2 (COVID-19) PCR, MMC NEGATIVE (NEGATIVE)
[2025-04-02] MEDS ORDERED: FLU VACC TS2025-26(6MOS UP)/PF 45 MCG/0.5 ML SYRINGE IM ONE (19:25)
[2025-04-02] MEDS ORDERED: Ondansetron HCl 2 MG / ML 2ML Vial IV PRN (19:25)
[2025-04-02] MEDS ORDERED: Metoclopramide HCl 5MG / ML 2ML Vial IV PRN (19:55)
[2025-04-02] MEDS ORDERED: Enoxaparin 40 MG/0.4 ML SYR SC SCH (20:00)
[2025-04-02 21:36] LABS: U Amphetamine Screen Not Detected; U Barbituate Screen Not Detected; U Benzodiazapine Screen Not Detected; U Buprenorphine Screen Not Detected; U Cannabinoids Screen Not Detected; U Cocaine Screen Not Detected; U Methadone Screen Not Detected; U Methamphetamine Screen Not Detected; U Opiates Screen Not Detected; U Oxycodone Screen Not Detected; U Phencyclidine Screen Not Detected
[2025-04-02 23:36] VITALS: BP 170/108
[2025-04-03] VITALS (9 sets, daily range): BP systolic 117–172; BP diastolic 80–110
[2025-04-03] MEDS ORDERED: Pantoprazole Sodium 40 MG Injection IV SCH
[2025-04-03] MEDS ORDERED: FentaNYL Citrate 50 MCG/ML 2 ML Injection IV PRN (01:30)
[2025-04-03] MEDS ORDERED: LORazepam 2 MG/ML 1ML Injection IV ONE (02:40)
--- NOTE | 2025-04-03 02:41 | NUR ---
CALLED DR JESUS DUE TO CONTINUED NAUSEA, AND CLARIFICATION OF DIET ORDER. NEW ORDER FOR ONE TIME DOSE OF ATIVAN, DIET ORDER FOR SIPS AND CHIPS, NOTIFY HIM IF PATIENT BEGINS TO ACTIVELY VOMIT OR ANY OTHER CHANGES
--- NOTE | 2025-04-03 04:42 | NUR ---
Patient admitted to room 325 from ER via stretcher, denies pain, complained of nausea, IV to right forearm, normal saline and potassium infusing upon admit, hypertensive on admission, vital signs stablized after resting, notified Dr Hernandez of continued nausea, patient sleeping after medications given, educated to call when getting up after ativan given, verbalized understanding, call light in reach, bed in low and locked position. will continue to monitor
[2025-04-03 06:20] LABS: BASOPHILS ABSOLUTE AUTO 0.03 K/mm3 (0.00-0.23); BASOPHILS PERCENT AUTO 0 % (0-2); EOSINOPHILS ABSOLUTE AUTO 0.00 K/mm3 (0.00-0.68); EOSINOPHILS PERCENT AUTO 0 % (0-6); Hematocrit 50.9 % (37.0-53.0); Hemoglobin 19.0 g/dL (13.5-17.5); IMMATURE GRAN ABSOLUTE AUTO 0.06 K/mm3 (0.00-0.10); IMMATURE GRAN PERCENT AUTO 1 % (0-1); LYMPHOCYTES ABSOLUTE AUTO 1.43 K/mm3 (0.84-5.20); LYMPHOCYTES PERCENT AUTO 13 % (21-46); MONOCYTES ABSOLUTE AUTO 1.08 K/mm3 (0.16-1.47); MONOCYTES PERCENT AUTO 10 % (4-13); Mean Corpuscular HGB Conc 37.3 g/dL (31.5-36.5); Mean Corpuscular Volume 83 fL (80-100); NEUTROPHILS ABSOLUTE AUTO 8.43 K/mm3 (1.96-9.15); NEUTROPHILS PERCENT AUTO 76 % (41-73); NRBC ABSOLUTE 0.00 K/mm3 (0.00-0.02); NRBC Auto 0.0 /100 WBC (0.0-0.2); Platelet Count 256 K/mm3 (150-400); RDW Coefficient Variation 12.4 % (11.7-14.2); RDW Standard Deviation 37.2 fL (35.1-46.3)
--- NOTE | 2025-04-03 06:46 | NUR ---
D/C C-DIFF GI TEST PER INFECTION CONTROL. PT HAS NOT HAD A BM FOR OVER 5 DAYS. GI TEST NOT INDICATED.
[2025-04-03 06:48] LABS: Alanine Aminotransfer (ALT/SGP 30.0 U/L (12-78); Albumin, Blood 3.4 g/dL (3.4-5.0); Albumin/Globulin Ratio 1.2 (0.8-1.8); Anion Gap 16.0 mmol/L (3-11); Aspartate Aminotrans (AST/SGOT 22.0 U/L (12-37); Bilirubin, Total 1.9 mg/dL (0.1-1.0); Blood Urea Nitrogen 22.0 mg/dL (8-24); CO2, Blood 22.0 mmol/L (21-32); Calcium, Blood 9.2 mg/dL (8.5-10.1); Chloride, Blood 94.0 mmol/L (98-108); Creatinine, Blood 0.76 mg/dL (0.60-1.20); Globulin, Blood 2.9 g/dL (2.2-4.0); Glucose, Blood 226.0 mg/dL (70-99); Potassium, Blood 3.4 mmol/L (3.5-5.5); Sodium, Blood 129.0 mmol/L (136-145); Total Protein, Blood 6.3 g/dL (6.4-8.2)
[2025-04-03] MEDS ORDERED: Insulin Human Lispro 100 Units/ML 3ML Syringe SC SCH ×3 (07:30→18:00)
[2025-04-03] MEDS ORDERED: Potassium Chl 20MEQ/Water100ML 100 ML IV STA (09:25)
[2025-04-03] MEDS ORDERED: NS 1,000 ML IV SCH (10:00)
[2025-04-03] MEDS ORDERED: Mag Sulfate 1 GM/D5% 100ML 100 ML IV STA (10:08)
--- NOTE | 2025-04-03 11:18 | NUR ---
NOTE TELE REPORTED SOME ARRITHMIAS "49 PVC A MINUTE ABD VTACH." ORDERED MAGNESIUM SULFATE. PHARMACY VERIFIED COMPATABILITY.
[2025-04-03 12:57] LABS: Magnesium, Blood 2.4 mg/dL (1.6-2.4); Phosphorus, Blood 2.4 mg/dL (2.5-4.9)
[2025-04-03 13:36] LABS: Prothrombin Time Results 11.3 Sec (9.7-11.5)
[2025-04-03 14:20] LABS: Anion Gap 16.0 mmol/L (3-11); Blood Urea Nitrogen 20.0 mg/dL (8-24); CO2, Blood 26.0 mmol/L (21-32); Calcium, Blood 9.7 mg/dL (8.5-10.1); Chloride, Blood 93.0 mmol/L (98-108); Creatinine, Blood 0.76 mg/dL (0.60-1.20); Glucose, Blood 233.0 mg/dL (70-99); Potassium, Blood 3.5 mmol/L (3.5-5.5); Sodium, Blood 131.0 mmol/L (136-145)
[2025-04-03] MEDS ORDERED: Metoclopramide HCl 5MG / ML 2ML Vial IV SCH (17:00)
[2025-04-03] MEDS ORDERED: Metoprolol Tartrate 1 MG/ML 5 ML VIAL IV PRN (17:00)
[2025-04-03] MEDS ORDERED: Potassium Phosphate Dibasic 20 MM in Dextrose 5% 500 ML IV STA (17:49)
--- NOTE | 2025-04-03 18:50 | NUR ---
NOTE PT ON TELE, TELE REPORTED FREQ PVC AND RUNS OF VTACH DURING SHIFT. DR. LEON ORDERED MAG SULFATE. PT GOT MED. THIS EVENING TELE REPORTED TO SAP INTEGRATION ARCHITECT, "PT CONVERTED TO AFLUTTER HR IN 140'S." TOOK EKG. EKG RECORDED " UNDETERMINED RHYTHM LEFT AXIS DEVIATION INFERIOR INFARCT, AGE UNDETERMINED ABNORMAL ECG." REPORTED RESULTS TO DR. LEON. SHE GAVE VERBAL FOR A TROPONIN LEVEL. TELE CALLED AGAIN AND REPORTED PT CONVERTED TO RVR AND WAS IN 160'S HR BUT NOW [address] LEON WHO REPORTED "GIVE LOPRESSOR." THIS RN GAVE PT LOPRESSOR. PT BLOOD PRESSURE PRIOR TO GIVING WAS 166/107. PT HR IN 1 TEENS" PER TELE. TELE NOTIFIED THIS RN GIVING MED. HALF WAY THROUGH ADMINISTRATION TELE REPORTED PT HR IS 109. AT END OF ADMINISTRATION TELE REPORTED HR IS 100BPM. BLOOD PRESSURE RETAKEN, NOTIFIED NIGHT RN PT REPORTS NO CHEST PAIN/SYMPTOMS.
--- NOTE | 2025-04-03 19:23 | NUR ---
SHIFT SUMMARY PT A&OX4. PT ADMITTED FOR REFACTORY N/V. PT REPORTS NO CHEST PAIN/SOB. PT REPORTS PAIN AT ABD, MEDICATED PER EMAR. PT IS A SBA DUE TO LINES AND WEAKNESS. PT HAS NEW IV. NS RUNNING AT 75ML/HR. PT GOT IV POTASSIUM REPLENISHED TODAY AND NOW POTASSIUM PHOSPHATE IS INFUSING. PT GOT MAGNESIUM SULFATE INFUSED DUE TO ARRYTHMIAS. PT HAS Q6 BLOOD SUGARS SCHEDULED. PT NOW ON MEDIUM CORRECTION SCALE. PT LAST BLOOD SUGAR WAS 341, NOTIFIED PT GOT 4 UNITS OF INSULIN, DR. LEON SAID "CHNAGING SCALE TO MEDIUM, KEEP ON Q6 EVEN THOUGH ORDERED DIET." PT VOMITTED X2 TODAY. REGLAN IS SCHEDULED. PT ON TELE, SEE NOTE FOR DETAILS. EKG COPY IN CHART. PT ON ROOM AIR. PT BLOOD PRESSURE ELEVATED. PT ON ROOM AIR. PT HAS FREE WATER RESTRICTION 1,000ML ORDERED. OT AND ST EVAL ORDERED. HOME MEDS RESTARTED. PT IN BED, BED IN LOWEST POSITION, CALL LIGHT IN REACH.
[2025-04-04 03:12] VITALS: BP 174/92
[2025-04-04] MEDS ORDERED: LORazepam 2 MG/ML 1ML Injection IV ONE (03:50)
--- NOTE | 2025-04-04 04:49 | NUR ---
PATIENT CONTINUES TO HAVE NAUSEA AND VOMITING AFTER ANY ORAL INTAKE, PAIN TREATED WITH MEDICATIONS, BLOOD SUGAR MONITIOR PER ORDERS, LUNGS CLEAR, ROOM AIR, AT BEDSIDE, CALL LIGHT IN REACH, BED IN LOW AN LOCKED POSITION
[2025-04-04 07:47] VITALS: BP 167/107
--- NOTE | 2025-04-04 08:27 | NUR ---
ASSUMPTION OF CARE: THIS RN ASSUMED CARE OF PATIENT OVERSEEING CARE OF ORIENTING RNMERVIN. AWAKE DURING SHIFT CHANGE REPORT. LYING IN BED ON RIGHT SIDE, RESTLESS AND MOANING; SIGN LANGUAGE INSTRUCTOR NURSE STATES THIS HAS BEEN A CONSTANT FOR HIM D/T ABD PAIN AND NAUSEA. BREATHING EVEN AND SLIGHTLY LABORED D/T PAIN. NS @ 75mL/hr. MOST RECENT TELE STRIP IN CHART INTERPRETED A-FLUTTER cBBB & PVCs @ 93. RUN OF V-TACH NOTED. IV METOPROLOL GIVEN FOR SBP >160. PAIN MEDS ADMINISTERED. CALL FROM ST TO SEE PT; WILL SEE LATER PT UNABLE TO TOLERATE PO INTAKE D/T NAUSEA. BED IN LOWEST POSITION. CALL LIGHT WITHIN REACH. ACUTE NEEDS MET.
[2025-04-04] MEDS ORDERED: NS 500 ML IV ONE (10:40)
--- NOTE | 2025-04-04 10:43 | NUR ---
DR RAMOS TO BEDSIDE FOR ROUNDING. ORDERS TO BOLUS SECOND HALF OF NS BAG, DC ZOFRAN AND START SCOPALAMINE PATCH IF CONTINUES TO BE NAUSEOUS. ORDERS PLACED FOR BMP AND MAG D/T HR. CONTINUES TO RUN A-FLUTTER BUT HR DECREASED SINCE IV METOPROLOL. DC'D FLUID RESTRICTION.
--- NOTE | 2025-04-04 11:16 | NUR ---
T.O. TO CONTINUE NS @ 100mL/hr.
[2025-04-04 11:32] VITALS: BP 116/75
[2025-04-04 11:34] LABS: Anion Gap 10.0 mmol/L (3-11); Blood Urea Nitrogen 16.0 mg/dL (8-24); CO2, Blood 31.0 mmol/L (21-32); Calcium, Blood 9.3 mg/dL (8.5-10.1); Chloride, Blood 91.0 mmol/L (98-108); Creatinine, Blood 0.78 mg/dL (0.60-1.20); Glucose, Blood 235.0 mg/dL (70-99); Magnesium, Blood 2.3 mg/dL (1.6-2.4); Potassium, Blood 3.3 mmol/L (3.5-5.5); Sodium, Blood 129.0 mmol/L (136-145)
[2025-04-04] MEDS ORDERED: NS 1,000 ML IV SCH (14:50)
[2025-04-04 15:57] VITALS: BP 158/99
[2025-04-04] MEDS ORDERED: Insulin Human Lispro 100 Units/ML 3ML Syringe SC SCH (16:30)
--- NOTE | 2025-04-04 16:42 | NUR ---
THIS RN REVIEWED DOCUMENTATION OF ORIENTING NURSE, RENETTA JFEFRIES.
--- NOTE | 2025-04-04 18:54 | NUR ---
END OF SHIFT SUMMARY: A&Ox4. INTERMITTENT CONFUSION AND FORGETFULNESS; DOES NOT ALWAYS UTILIZE CALL LIGHT. DISCONNECTS TELE BOX WHEN AMBULATING TO BATHROOM DESPITE HAVING BEEN ASKED TO NOT. SBA c AMBULATION D/T LINE MANAGEMENT. MINIMAL NAUSEA NOTED TODAY WITHOUT EMESIS. ZOFRAN DCd AND SCOPALAMINE PATCH PLACED. TOLERATING PO INTAKE THIS AFTERNOON AND CONSUMED 75% PO INTAKE FOR LUNCH AND DINNER. NOT PASSING FLATUS; T.O. TO PLACE NGT IF HIGH VOLUME EMESIS OVERNIGHT. TELE A-FLUTTER @ BEGINNING OF SHIFT AND CONVERTED TO SINUS c 6-BEAT RUN OF PVCs PER TELE. PAIN MEDS ADMINISTERED C/O ABD PAIN. CONTINENT OF BOWEL AND BLADDER; REPORTEDLYL HASN'T HAD BM IN SEVERAL DAYS; MEDS ADMINISTERED. MEDS WHOLE c FLUIDS. POTASSIUM REPLACED. GLUCOSE CHECKS AND SSC CHANGED FROM Q6H TO AC/HS D/T TOLERATING DIET. FLUID RESTRICTION LIFTED. GIVEN 500mL BOLUS OF NS AND INCREASED RATE TO 200mL/hr; LR ONLY SLIGHTLY CHANGED FROM YESTERDAY. UNABLE TO BE SEEN BY ST THEY WERE TO BEDSIDE EARLY AND PATIENT WAS STILL NAUSEATED AT THE TIME. BED IN LOWEST POSITION, CALL LIGHT WITHIN REACH, ALL NEEDS MET. REPORT TO ONCOMING NURSE.
[2025-04-04 20:40] VITALS: BP 139/71
--- NOTE | 2025-04-04 23:56 | NUR ---
PROVIDER CALLED: CALL PLACED TO [employer] WAREHOUSE GENERAL LABORER ABOUT GETTING A CT SCAN DONE ON THIS PT. NIGHT PROVIDER DECLINED TO INTERVENE. WILL RELAY TO ONCOMING NURSE TO TO ASK DAY HOSPITALIST.
[2025-04-05] VITALS (9 sets, daily range): BP systolic 106–185; BP diastolic 75–126
[2025-04-05] MEDS ORDERED: Ondansetron HCl 2 MG / ML 2ML Vial IV PRN (03:50)
--- NOTE | 2025-04-05 03:55 | NUR ---
POST FALL: THIS NURSE HAD JUST GOTTEN BACK FROM LUNCH WHEN i WENT TO CHECK ON THE PT AND THEY WERE LAYING ON THEIR RIGHT SIDE. THE IV PUMP AND POLE WERE LAYING ON THE GROUND AND THE PT WAS LAYING AT THE FOOT OF THE BED ON THEIR RIGHT SIDE. PT WAS EXAMINED FOR PAIN AND DENIED ANY PAIN. PT WAS HELPED UP TO BED. RIGHT SIDED FACIAL DROOP WAS NOTED AND SLURRED SPEECH. DR AND CHARGE NURSE [place] NOTIFIED. CBG WAS TAKEN AND WAS 233. BED ALARM WAS SET AND SOCKS WERE PUT ON PT. PT WAS NOTIFIED AND EDUCATED TO CALL FOR AST TO GET UP. PT HAS SINCE BEEN IMPULSIVE AND NEEDING TO BE REDIRECTED TO STAY IN BED. CT WAS ORDERED BY PROVIDER.
--- NOTE | 2025-04-05 04:55 | NUR ---
SHIFT SUMMARY: PT HAS ABD TENDERNESS AND N/V. PT HAD A FALL EARLY THIS MORNING. SEE POST FALL NOTE. PT IS IMPULSIVE TOWARDS THE END OF THE SHIFT AND NEEDING A LOT OF REDIRECTION TO STAY IN BED. PT WENT DOWN FOR AN ABDOMINAL AND HEAD CT. MEDICATED PER EMAR.
[2025-04-05 05:19] LABS: BASOPHILS ABSOLUTE AUTO 0.02 K/mm3 (0.00-0.23); BASOPHILS PERCENT AUTO 0 % (0-2); EOSINOPHILS ABSOLUTE AUTO 0.06 K/mm3 (0.00-0.68); EOSINOPHILS PERCENT AUTO 1 % (0-6); Hematocrit 51.0 % (37.0-53.0); Hemoglobin 19.1 g/dL (13.5-17.5); IMMATURE GRAN ABSOLUTE AUTO 0.05 K/mm3 (0.00-0.10); IMMATURE GRAN PERCENT AUTO 1 % (0-1); LYMPHOCYTES ABSOLUTE AUTO 1.36 K/mm3 (0.84-5.20); LYMPHOCYTES PERCENT AUTO 19 % (21-46); MONOCYTES ABSOLUTE AUTO 0.79 K/mm3 (0.16-1.47); MONOCYTES PERCENT AUTO 11 % (4-13); Mean Corpuscular HGB Conc 37.5 g/dL (31.5-36.5); Mean Corpuscular Volume 83 fL (80-100); NEUTROPHILS ABSOLUTE AUTO 4.87 K/mm3 (1.96-9.15); NEUTROPHILS PERCENT AUTO 68 % (41-73); NRBC ABSOLUTE 0.00 K/mm3 (0.00-0.02); NRBC Auto 0.0 /100 WBC (0.0-0.2); Platelet Count 197 K/mm3 (150-400); RDW Coefficient Variation 12.4 % (11.7-14.2); RDW Standard Deviation 37.2 fL (35.1-46.3)
[2025-04-05 05:38] LABS: Alanine Aminotransfer (ALT/SGP 36.0 U/L (12-78); Albumin, Blood 3.6 g/dL (3.4-5.0); Albumin/Globulin Ratio 1.3 (0.8-1.8); Anion Gap 8.0 mmol/L (3-11); Aspartate Aminotrans (AST/SGOT 29.0 U/L (12-37); Bilirubin, Total 1.7 mg/dL (0.1-1.0); Blood Urea Nitrogen 17.0 mg/dL (8-24); CO2, Blood 30.0 mmol/L (21-32); Calcium, Blood 9.2 mg/dL (8.5-10.1); Chloride, Blood 96.0 mmol/L (98-108); Creatinine, Blood 0.79 mg/dL (0.60-1.20); Globulin, Blood 2.8 g/dL (2.2-4.0); Glucose, Blood 235.0 mg/dL (70-99); Potassium, Blood 3.1 mmol/L (3.5-5.5); Sodium, Blood 131.0 mmol/L (136-145); Total Protein, Blood 6.4 g/dL (6.4-8.2)
[2025-04-05] MEDS ORDERED: NS 250 ML IV PRN (08:30)
[2025-04-05] MEDS ORDERED: Potassium Phosphate Dibasic 15 MM in Dextrose 5% 250 ML IV STA (11:00)
[2025-04-05] MEDS ORDERED: FentaNYL Citrate 50 MCG/ML 2 ML Injection IV PRN (13:00)
[2025-04-05 13:26] LABS: Ferritin, Serum 718.0 ng/mL (26-388); Total Iron Binding Capacity 334.0 ug/dL (250-450)
[2025-04-05] MEDS ORDERED: Sodium Phosphate 25 MM in Dextrose 5% 500 ML IV SCH (14:00)
[2025-04-05] MEDS ORDERED: Polyethylene Glycol 3350 17 gm PO SCH (17:00)
--- NOTE | 2025-04-05 18:04 | NUR ---
SHIFT SUMMARY PATIENT A&OX3, UNABLE TO RECALL DATE. SOME EPISODES OF EMESIS. BOWEL CARE INITIATED. AMBULATING WITH FWW AND STAND BY ASSIST. IN ROOM TO STAY WITH PATIENT. ON RA. PER WE ARE STAYING AWAY FROM NARCOTICS AND ENCOURAGING MOVEMENT TO GET BOWELS MOVING. ORIENTED TO CALL LIGHT. BED IN LOWEST POSITION. ABLE TO MAKE NEEDS KNOWN. COOPERATIVE WITH CARE.
[2025-04-05 19:27] LABS: Anion Gap 8.0 mmol/L (3-11); Blood Urea Nitrogen 14.0 mg/dL (8-24); CO2, Blood 32.0 mmol/L (21-32); Calcium, Blood 9.4 mg/dL (8.5-10.1); Chloride, Blood 95.0 mmol/L (98-108); Creatinine, Blood 0.84 mg/dL (0.60-1.20); Glucose, Blood 237.0 mg/dL (70-99); Potassium, Blood 3.3 mmol/L (3.5-5.5); Sodium, Blood 132.0 mmol/L (136-145)
[2025-04-06] VITALS (7 sets, daily range): BP systolic 126–179; BP diastolic 81–106
--- NOTE | 2025-04-06 04:37 | NUR ---
SHIFT SUMMARY: PT IS AOX3 AND IMPULSIVE AT TIMES. PT HAD A FALL IN THE HOSPITAL ON 04/05 AND IS IN A YELLOW GOWN FOR SAFETY. PT IS IMPULSIVE AT TIMES BUT REDIRECTABLE. PT HAS NOT HAD A BM FOR 10 DAYS PER THE PT AND PTS . PT WAS GIVEN A BROWN COW AT THE START OF SHIFT BUT PT WAS UNABLE TO TOLERATE AND DRINK IT DUE TO TASTE. TELLY IN PLACE AND PT IS ON RM AIR. BED ALARM ON FOR SAFETY. PT WAS MEDICATED ONE FOR NAUSEA. AT BEDSIDE MOST OF THE NIGHT.
[2025-04-06 06:09] LABS: Alanine Aminotransfer (ALT/SGP 37.0 U/L (12-78); Albumin, Blood 3.0 g/dL (3.4-5.0); Albumin/Globulin Ratio 1.3 (0.8-1.8); Anion Gap 7.0 mmol/L (3-11); Aspartate Aminotrans (AST/SGOT 23.0 U/L (12-37); Bilirubin, Total 1.3 mg/dL (0.1-1.0); Blood Urea Nitrogen 12.0 mg/dL (8-24); CO2, Blood 30.0 mmol/L (21-32); Calcium, Blood 8.8 mg/dL (8.5-10.1); Chloride, Blood 96.0 mmol/L (98-108); Creatinine, Blood 0.72 mg/dL (0.60-1.20); Globulin, Blood 2.3 g/dL (2.2-4.0); Glucose, Blood 266.0 mg/dL (70-99); Magnesium, Blood 1.9 mg/dL (1.6-2.4); Phosphorus, Blood 1.4 mg/dL (2.5-4.9); Potassium, Blood 3.2 mmol/L (3.5-5.5); Sodium, Blood 130.0 mmol/L (136-145); Total Protein, Blood 5.3 g/dL (6.4-8.2)
[2025-04-06] MEDS ORDERED: Potassium Phosphate Dibasic 15 MM in Dextrose 5% 250 ML IV STA (07:06)
[2025-04-06 07:57] LABS: BASOPHILS ABSOLUTE AUTO 0.02 K/mm3 (0.00-0.23); BASOPHILS PERCENT AUTO 0 % (0-2); EOSINOPHILS ABSOLUTE AUTO 0.03 K/mm3 (0.00-0.68); EOSINOPHILS PERCENT AUTO 1 % (0-6); Hematocrit 44.3 % (37.0-53.0); Hemoglobin 16.8 g/dL (13.5-17.5); IMMATURE GRAN ABSOLUTE AUTO 0.02 K/mm3 (0.00-0.10); IMMATURE GRAN PERCENT AUTO 0 % (0-1); LYMPHOCYTES ABSOLUTE AUTO 1.02 K/mm3 (0.84-5.20); LYMPHOCYTES PERCENT AUTO 22 % (21-46); MONOCYTES ABSOLUTE AUTO 0.60 K/mm3 (0.16-1.47); MONOCYTES PERCENT AUTO 13 % (4-13); Mean Corpuscular HGB Conc 37.9 g/dL (31.5-36.5); Mean Corpuscular Volume 81 fL (80-100); NEUTROPHILS ABSOLUTE AUTO 3.06 K/mm3 (1.96-9.15); NEUTROPHILS PERCENT AUTO 65 % (41-73); NRBC ABSOLUTE 0.00 K/mm3 (0.00-0.02); NRBC Auto 0.0 /100 WBC (0.0-0.2); Platelet Count 154 K/mm3 (150-400); RDW Coefficient Variation 12.2 % (11.7-14.2); RDW Standard Deviation 35.7 fL (35.1-46.3)
[2025-04-06] MEDS ORDERED: Labetalol HCL 5 MG/ML 4ML Injection (Single Dose) IV PRN (08:55)
[2025-04-06] MEDS ORDERED: Polyethylene Glycol 3350 17 gm PO SCH (09:00)
--- NOTE | 2025-04-06 09:22 | NUR ---
SPOKE TO WEDDING DAY COORDINATOR- PT HAS TELE ON. HR SINUS AT 98 WITH PVC'S AND FREQUENT UNSUSTAINED RUNS OF V-TAC PER WEDDING DAY COORDINATOR DENISE. WILL SPEAK TO MD. PT HAS C/O NAUSEA, SEEMS TO BE DIZZY AND GROGGY THEN WHEN STAFF LEAVE THE ROOM HE GETS UP TO THE SIDE OF THE BED AND IS USING HIS PHONE AND DOES NOT APPEAR DIZZY ANY MORE. VSS AT THIS TIME.
[2025-04-06] MEDS ORDERED: Potassium Phosphate Dibasic 30 MM in Dextrose 5% 500 ML IV SCH (10:30)
[2025-04-06 12:57] LABS: Anion Gap 7.0 mmol/L (3-11); Blood Urea Nitrogen 13.0 mg/dL (8-24); CO2, Blood 31.0 mmol/L (21-32); Calcium, Blood 8.7 mg/dL (8.5-10.1); Chloride, Blood 95.0 mmol/L (98-108); Creatinine, Blood 0.67 mg/dL (0.60-1.20); Glucose, Blood 206.0 mg/dL (70-99); Phosphorus, Blood 2.1 mg/dL (2.5-4.9); Potassium, Blood 3.4 mmol/L (3.5-5.5); Sodium, Blood 130.0 mmol/L (136-145)
[2025-04-06] MEDS ORDERED: Thiamine HCl 300 MG in NS 100 ML IV SCH (18:00)
--- NOTE | 2025-04-06 19:26 | NUR ---
SHIFT SUMMARY- PT HAD NOT HAD A STOOL IN 10 DAYS AT THE START OF THE SHIFT. PT RECIEVED MEDS TO HELP STIMULATE STOOL PRODUCTION. (SEE EMAR FOR DETAILS) HE HAD A TOTAL OF 5 LARGE BOWEL MOVEMENTS. STARTING WITH "RABBIT PILLS" AND INCREASEING TO LIQUID AND RAPID STOOLS. PT IS IMPULSIVE AND A POOR HISTORIAN. HIS SPOUSE IS AT THE BEDSIDE AT THE TIME OF BEDSIDE REPORT. HE FELL ASLEEP SHORTLY AFTER REPORT AND HIS SPOUSE LEFT. PT LAYING IN BED ASLEEP NO S&S OF DISTRESS NOTED AT THE TIME OF REPORT
[2025-04-07] VITALS (7 sets, daily range): BP systolic 95–149; BP diastolic 57–97
--- NOTE | 2025-04-07 03:50 | NUR ---
SHIFT SUMMARY: PT IS AOX3 AND OWNS AT NIGHT. PT IS IMPULSIVE AND SOMEWHAT REDIRECTABLE. BOWEL MEDS HELD THIS SHIFT DUE TO SEVERAL LOOSE BMS DURING DAY SHIFT. PT USES A URINAL AT BEDSIDE FOR VOIDING. NO ACUTE CHANGES THIS SHIFT.
[2025-04-07 06:08] LABS: BASOPHILS ABSOLUTE AUTO 0.03 K/mm3 (0.00-0.23); BASOPHILS PERCENT AUTO 1 % (0-2); EOSINOPHILS ABSOLUTE AUTO 0.18 K/mm3 (0.00-0.68); EOSINOPHILS PERCENT AUTO 4 % (0-6); Hematocrit 40.8 % (37.0-53.0); Hemoglobin 15.2 g/dL (13.5-17.5); IMMATURE GRAN ABSOLUTE AUTO 0.02 K/mm3 (0.00-0.10); IMMATURE GRAN PERCENT AUTO 1 % (0-1); LYMPHOCYTES ABSOLUTE AUTO 0.95 K/mm3 (0.84-5.20); LYMPHOCYTES PERCENT AUTO 22 % (21-46); MONOCYTES ABSOLUTE AUTO 0.51 K/mm3 (0.16-1.47); MONOCYTES PERCENT AUTO 12 % (4-13); Mean Corpuscular HGB Conc 37.3 g/dL (31.5-36.5); Mean Corpuscular Volume 83 fL (80-100); NEUTROPHILS ABSOLUTE AUTO 2.64 K/mm3 (1.96-9.15); NEUTROPHILS PERCENT AUTO 61 % (41-73); NRBC ABSOLUTE 0.00 K/mm3 (0.00-0.02); NRBC Auto 0.0 /100 WBC (0.0-0.2); Platelet Count 129 K/mm3 (150-400); RDW Coefficient Variation 12.4 % (11.7-14.2); RDW Standard Deviation 37.1 fL (35.1-46.3)
[2025-04-07 06:25] LABS: Alanine Aminotransfer (ALT/SGP 31.0 U/L (12-78); Albumin, Blood 2.8 g/dL (3.4-5.0); Albumin/Globulin Ratio 1.2 (0.8-1.8); Anion Gap 7.0 mmol/L (3-11); Aspartate Aminotrans (AST/SGOT 17.0 U/L (12-37); Bilirubin, Total 0.7 mg/dL (0.1-1.0); Blood Urea Nitrogen 14.0 mg/dL (8-24); CO2, Blood 32.0 mmol/L (21-32); Calcium, Blood 9.1 mg/dL (8.5-10.1); Chloride, Blood 96.0 mmol/L (98-108); Creatinine, Blood 0.96 mg/dL (0.60-1.20); Globulin, Blood 2.3 g/dL (2.2-4.0); Glucose, Blood 338.0 mg/dL (70-99); Magnesium, Blood 2.0 mg/dL (1.6-2.4); Phosphorus, Blood 2.2 mg/dL (2.5-4.9); Potassium, Blood 3.1 mmol/L (3.5-5.5); Sodium, Blood 132.0 mmol/L (136-145); Total Protein, Blood 5.1 g/dL (6.4-8.2)
[2025-04-07] MEDS ORDERED: Polyethylene Glycol 3350 17 gm PO PRN (06:25)
[2025-04-07] MEDS ORDERED: Potassium Phosphate Dibasic 15 MM in Dextrose 5% 250 ML IV STA (06:41)
[2025-04-07] MEDS ORDERED: Potassium Phosphate Dibasic 30 MM in Dextrose 5% 500 ML IV STA (07:58)
[2025-04-07] MEDS ORDERED: Multivitamins 1 Tab PO SCH (09:00)
[2025-04-07] MEDS ORDERED: QUET25 PO (15:00)
[2025-04-07] MEDS ORDERED: Percocet 10-321 EACH PO (15:00)
[2025-04-07] MEDS ORDERED: TAMS.4ER PO (15:01)
[2025-04-07] MEDS ORDERED: Amitriptyline H10 MG PO (15:02)
[2025-04-07] MEDS ORDERED: ONDA4 PO (15:02)
[2025-04-07] MEDS ORDERED: HYDCHL12.5 PO (15:03)
[2025-04-07] MEDS ORDERED: CATAPRES0.1 MG PO (15:03)
[2025-04-07] MEDS ORDERED: Metoclopramide HCl 5MG / ML 2ML Vial IV SCH (17:00)
--- NOTE | 2025-04-07 17:56 | NUR ---
SHIFT SUMMARY- PT ALERT AND ORIENTED TO SELF AND FAMILY, HE IS VERY FORGETFUL, HE IS A FALL RISK, AND HAS FALLEN THIS VISIT. BED ALARM FOR PT SAFETY. PT SPOUSE WAS PRESNET WHEN THIS RN WENT TO ADMINISTER THE PT GABAPENTIN. HIS SPOUSE WAS GREATLY CONCERNED, SHE SAID THE PT WAS TAKEN OFF OF THIS MED IT CAUSED HIM TO HAVE VIOLENT OUTBURSTS. SHE HAD HIS MEDICATIONS WITH HER AND THE MED REC WAS COMPLETED WITH THE LABELED BOTTLES (WITH CURRENT DATES ON THEM). NOTIFIED THE PT IS ON SOME MEDS THAT HAVE BEEN DC'D AND IS NOT ON OTHERS THAT HE SHOULD BE TAKING. DR AWARE, MEDS WERE CHANGED. PT IS IMPULSIVE AND HAS BEEN UP TO THE BATHROOM FREQUENTLY T/O THE DAY. HE IS CURRENTLY IN BED, CALL LIGHT IN REACH NO S&S OF DISTRESS NOTED, BED ALARM SET, SPOUSE LEFT FOR THE NIGHT.
[2025-04-08 00:20] VITALS: BP 144/91
[2025-04-08 04:30] VITALS: BP 153/101
--- NOTE | 2025-04-08 06:07 | NUR ---
Shift Summary Pt up frequently to the BR for voids, multiple unmeasured voids. Pt educated on importance of accurate output. Pt does not call when getting up, bed alarm on, high risk for falls. Pt refusing to wear telemetry this AM, educated on importance, telesales supervisor notified. Pt also refusing lab draw. He states he is leaving today. He is AOx3-4 with forgetfulness and some confusion. No c/o of nausea this shift.
--- NOTE | 2025-04-08 07:27 | NUR ---
ASSUMED CARE- PT AGGITATED AT THE TIME OF BEDSIDE REPORT. HE IS NOW WEARING HIS OWN T SHIRT NOT A HOSPITAL GOWN. PER REPORT HE IS REFUSING TELE AND LAB WORK AND SAYS HE IS GOING HOME TODAY. THIS RN WENT IN TO SEE THE PT WHEN HE SET OFF THE BED ALARM. HE WAS ANGRY AND SEEMED TO BE FEELING DEFENSIVE. ASKED IF HE NEEDED ASSISTANCE TO THE BATHROOM HE SAID NO HE DOES NOT NEED TO GO. HE SAID "I AM LEAVING. ANGIE (HIS SPOUSE) IS COMING TO GET ME AT 10!" THIS RN TOLD HE WE WOULD NOTIFY THE DOCTOR SO SHE COULD WRITE DISCHARGE ORDERS FOR HIM. HE SAID "IF SHE'S NOT GOING TO DISCHARGE ME, I AM LEAVING ANYWAY." CALLED DR DIAZ. PT IS A FALL RISK AND HAS HAD A FALL THIS VISIT. THE ALARMS ARE MAKING HIS AGGITATION INTO AGRESSION AND IT IS CLEAR HE FEELS TRAPPED. HE WAS ASKED TO CALL STAFF FOR ASSISTANCE WHEN HE MOVES TO KEEP HIM SAFE. TO PREVENT STAFF HARM ALARMS ARE NOT SET. MANAGER OF MAINTENANCE NOTIFIED, STAFF SHOULD NOT GET HURT TO PREVENT A FALL.
[2025-04-08 07:41] VITALS: BP 142/95
[2025-04-08] MEDS ORDERED: ENTRESTO 24 MG1 EAC2 PO (09:29)
[2025-04-08] MEDS ORDERED: MECL25 PO (09:29)
[2025-04-08] MEDS ORDERED: METO5A PO (09:30)
[2025-04-08] MEDS ORDERED: CARV3.125 PO (09:30)
[2025-04-08 12:59] VITALS: BP 89/65
[2025-04-08 13:04] VITALS: BP 97/70
[2025-04-08 13:47] VITALS: BP 107/73
--- NOTE | 2025-04-08 15:51 | NUR ---
DISCHARGE PATIENT AMBULATED, PER PREFERENCE, TO [facility]. DISCHARGE INSTRUCTIONS EXPLAINED TO , PATIENT WALKED AWAY. STATED UNDERSTANDING. CHANGES TO MEDICATIONS EXPLAINED TO AND NEW MEDICATIONS EXPLAINED TO HER. PAPER EDUCATION WAS GIVEN FOR NEW MEDICATIONS AND NEW HEART FAILURE DIAGNOSIS. IV REMOVED WITHOUT DIFFICULTY. TELE REMOVED WITHOUT DIFFICULTY. MEDICATIONS FAXED TO [facility] PER REQUEST. PATIENT NOTIFIED OF NEED TO FOLLOW UP WITH PCP WITHIN 2 WEEKS, STATED UNDERSTANDING. ALSO TALKED WITH PATIENT ABOUT NEED TO FOLLOW UP WITH A OIL AND GAS SUPERINTENDENT. BELONGINGS SENT WITH PATIENT.
--- NOTE | 2025-04-08 15:55 | NUR ---
CALLED DR MARCOS- PT HAD NEW MED ENTRESTO THIS AM. BP RECHECKED THIS AFTERNOON THE PT WAS FAST ASLEEP AND NOT WAKING FOR STAFF. BP LOW SBP MID 80'S, CALLED DR DIAZ, BP RECHECKED ONCE PT WAS A LITTLE MORE AWAKE SBP IN THE 90'S. CALLED DR DIAZ, DR MARCOS WAS COVERING. ORDER RECIEVED FOR THE PT TO HOLD THE ENTRESTO IF HIS PRESSURE IS LOW AND FOLLOW UP WITH HIS PCP. THIS RN GOT THE PT OUT OF BED, HE WALKED DOWN THE FREMEAN TO THE IRU DESK SPUN A [place] IN THE SQUARE, DENIED ANY DIZZINESS, THEN WALKED BACK TO HIS ROOM. HE SAT FOR 5 MINUTES BP RECHECK SHOWED SBP 107. PT STILL DENIES DIZZINESS AND HAD NO S&S OF DISTRESS NOTED. SPOKE TO THE PT ABOUT THE HOME MEDS, SHE WAS INSTRUCTED TO HOLD THE ENTRESTO IF THE PT BP IS LOW. SHE WILL CALL HIS PCP IF THE PRESSURE IS LESS THAN 120 BEFORE GIVING.
== END 2025-04-08 15:49 | disposition home or self-care (01) | DRG 73 ==
LOC: ER 11:07 → MEDS 11:08 → ERHOLD 11:08 → MEDS 23:29
PROVIDERS: Hospitalist; Student in an Organized Health Care Education/Training Program; ADMIT Internal Medicine
DX: E11.43 Type 2 diabetes mellitus with diabetic autonomic (poly)neuropathy (principal); I81 Portal vein thrombosis; K55.059 Acute (reversible) ischemia of intestine, part and extent unspecified; I50.22 Chronic systolic (congestive) heart failure; E87.1 Hypo-osmolality and hyponatremia; Z94.4 Liver transplant status; I82.891 Chronic embolism and thrombosis of other specified veins; R11.2 Nausea with vomiting, unspecified; Z96.612 Presence of left artificial shoulder joint; E87.6 Hypokalemia; I49.3 Ventricular premature depolarization; K59.00 Constipation, unspecified; K31.84 Gastroparesis; I11.0 Hypertensive heart disease with heart failure; I35.0 Nonrheumatic aortic (valve) stenosis; E86.0 Dehydration; G31.84 Mild cognitive impairment of uncertain or unknown etiology; E11.42 Type 2 diabetes mellitus with diabetic polyneuropathy; Z79.899 Other long term (current) drug therapy; Z79.84 Long term (current) use of oral hypoglycemic drugs; Z79.82 Long term (current) use of aspirin; Z79.02 Long term (current) use of antithrombotics/antiplatelets; Z88.8 Allergy status to other drugs, medicaments and biological substances; E83.39 Other disorders of phosphorus metabolism; E11.65 Type 2 diabetes mellitus with hyperglycemia; I48.91 Unspecified atrial fibrillation
CPT/HCPCS: 36415; 70450; 71046; 74177; 80048; 80053; 81001; 82010; 82248; 82728; 82947; 83036; 83540; 83550; 83605; 83690; 83735; 83880; 84100; 84484; 85025; 85610; 87637; 92610; 93005; 93010; 93306; 96365-59; 96372; 96375; 96376; 97129; 97165; 97530; 97535; 99285-25; A9270; G0378; J1650; J2060; J2405; J2470; J2765; J3010; J3411; J3475; J3480; J7030; J7040; J7050; J7060; Q9967

== ENCOUNTER 2025-05-27 14:53 | Emergency (ER) | payer MEDICARE, OTHER ==
[~2025-05-27] VITALS: Ht 182.9 cm; Wt 81.7 kg
[~2025-05-27 14:53] MED LIST changes: +Amitriptyline H10 MG PO; +CARV3.125 PO; +ENTRESTO 24 MG1 EAC2 PO; +MECL25 PO; +METO5A PO; +ONDA4 PO; +Percocet 10-321 EACH PO; +QUET25 PO; +TAMS.4ER PO
[2025-05-27 15:31] LABS: BASOPHILS ABSOLUTE AUTO 0.06 K/mm3 (0.00-0.23); BASOPHILS PERCENT AUTO 1 % (0-2); EOSINOPHILS ABSOLUTE AUTO 0.07 K/mm3 (0.00-0.68); EOSINOPHILS PERCENT AUTO 1 % (0-6); Hematocrit 49.2 % (37.0-53.0); Hemoglobin 17.1 g/dL (13.5-17.5); IMMATURE GRAN ABSOLUTE AUTO 0.02 K/mm3 (0.00-0.10); IMMATURE GRAN PERCENT AUTO 0 % (0-1); LYMPHOCYTES ABSOLUTE AUTO 1.21 K/mm3 (0.84-5.20); LYMPHOCYTES PERCENT AUTO 20 % (21-46); MONOCYTES ABSOLUTE AUTO 0.51 K/mm3 (0.16-1.47); MONOCYTES PERCENT AUTO 9 % (4-13); Mean Corpuscular HGB Conc 34.8 g/dL (31.5-36.5); Mean Corpuscular Volume 89 fL (80-100); NEUTROPHILS ABSOLUTE AUTO 4.11 K/mm3 (1.96-9.15); NEUTROPHILS PERCENT AUTO 69 % (41-73); NRBC ABSOLUTE 0.00 K/mm3 (0.00-0.02); NRBC Auto 0.0 /100 WBC (0.0-0.2); Platelet Count 153 K/mm3 (150-400); RDW Coefficient Variation 13.8 % (11.7-14.2); RDW Standard Deviation 44.5 fL (35.1-46.3)
[2025-05-27 15:51] LABS: Alanine Aminotransfer (ALT/SGP 42.0 U/L (12-78); Albumin, Blood 3.5 g/dL (3.4-5.0); Albumin/Globulin Ratio 1.2 (0.8-1.8); Anion Gap 10.0 mmol/L (3-11); Aspartate Aminotrans (AST/SGOT 25.0 U/L (12-37); Bilirubin, Total 0.7 mg/dL (0.1-1.0); Blood Urea Nitrogen 26.0 mg/dL (8-24); CO2, Blood 23.0 mmol/L (21-32); Calcium, Blood 10.0 mg/dL (8.5-10.1); Chloride, Blood 102.0 mmol/L (98-108); Creatinine, Blood 0.9 mg/dL (0.60-1.20); Globulin, Blood 2.8 g/dL (2.2-4.0); Glucose, Blood 498.0 mg/dL (70-99); Magnesium, Blood 2.2 mg/dL (1.6-2.4); Potassium, Blood 4.4 mmol/L (3.5-5.5); Sodium, Blood 131.0 mmol/L (136-145); Total Protein, Blood 6.3 g/dL (6.4-8.2)
[2025-05-27 17:30] VITALS: BP 119/103
[2025-05-27] MEDS ORDERED: METO25ER PO (17:55)
== END 2025-05-27 18:00 | disposition home or self-care (01) ==
LOC: ER 14:53
PROVIDERS: Emergency Medicine
DX: I47.19 Other supraventricular tachycardia (principal); I49.3 Ventricular premature depolarization; E11.65 Type 2 diabetes mellitus with hyperglycemia; I11.0 Hypertensive heart disease with heart failure; I50.9 Heart failure, unspecified; K74.60 Unspecified cirrhosis of liver; Z88.8 Allergy status to other drugs, medicaments and biological substances; Z79.84 Long term (current) use of oral hypoglycemic drugs; Z79.82 Long term (current) use of aspirin; Z79.899 Other long term (current) drug therapy
CPT/HCPCS: 71045; 71260; 80053; 82140; 83735; 83880; 84484; 85025; 93005; 93010; 99285-25; Q9967

== ENCOUNTER → 2025-06-18 | Outpatient (CLI) | payer MEDICARE ==
[2025-06-18 20:49] LABS: Microalbumin, Urine Quant. 199.0 mg/L (0.000-20.000); Protein, Urine Quantitative 33.9 mg/dL (0.0-11.9)
== END ==
LOC: LAB SHORT 12:37 → LAB 12:37
PROVIDERS: Internal Medicine Nephrology
DX: E11.22 Type 2 diabetes mellitus with diabetic chronic kidney disease (principal); N18.30 Chronic kidney disease, stage 3 unspecified; D63.1 Anemia in chronic kidney disease; N25.81 Secondary hyperparathyroidism of renal origin; E55.9 Vitamin D deficiency, unspecified; E78.00 Pure hypercholesterolemia, unspecified; R76.9 Abnormal immunological finding in serum, unspecified; R94.5 Abnormal results of liver function studies; R94.6 Abnormal results of thyroid function studies; G60.9 Hereditary and idiopathic neuropathy, unspecified; D51.8 Other vitamin B12 deficiency anemias; D50.9 Iron deficiency anemia, unspecified
CPT/HCPCS: 81050; 82043; 82570; 84156

== ENCOUNTER → 2025-06-19 | Outpatient (CLI) | payer MEDICARE ==
[2025-06-26 10:55] LABS: CORTISOL,U FREE - RATIO TO CRT 147.27 ug/g CRT; CORTISOL,URN FREE - PER VOLUME 16.20 ug/L; CREATININE,URINE - PER VOLUME 11 mg/dL; HOURS COLLECTED Not Provided hr
== END | disposition home or self-care (01) ==
LOC: LAB SHORT 16:43 → LAB 16:43
PROVIDERS: Internal Medicine Nephrology
DX: N18.30 Chronic kidney disease, stage 3 unspecified (principal); D63.1 Anemia in chronic kidney disease; E27.0 Other adrenocortical overactivity
CPT/HCPCS: 82530